=== PATIENT | female | born 1985 | race Caucasian/White ===

== ENCOUNTER 2021-06-24 06:07 | Emergency (ER) | payer MEDICAID ==
[~2021-06-24] VITALS: Ht 149.9 cm; Wt 54.5 kg
[2021-06-24 06:25] VITALS: BP 121/75
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
== END 2021-06-24 06:45 ==
LOC: ER 06:07
DX: N64.4 Mastodynia
CPT/HCPCS: 99283